=== PATIENT | male | born 1990 | race Caucasian/White ===

== ENCOUNTER → 2023-06-21 16:44 | Outpatient (CLI) | payer OTHER, MEDICAID, SELFPAY ==
[2023-06-21 17:26] LABS: Add Manual Diff / Slide Review NO; Basophils Absolute Auto 0 /uL (0-100); Basophils Percent Auto 0.5 % (0-2); Eosinophils Absolute Auto 400 /uL (0-450); Eosinophils Percent Auto 4.4 % (2-4); Hematocrit 42.2 % (41-53); Hemoglobin 14.4 g/dL (13.5-17.5); Lymphocytes Absolute Auto 2700 /uL (1100-4500); Lymphocytes Percent Auto 30.1 % (25-40); Mean Corpuscular HGB Conc 34.1 % (30-36); Mean Corpuscular Volume 82.3 fL (80-100); Monocytes Absolute Auto 800 /uL (0-900); Monocytes Percent Auto 8.8 % (3-14); Neutrophils Absolute Auto 5100 /uL (1500-7000); Neutrophils Percent Auto 56.2 % (50-75); Platelet Count 315 X10^3/uL (150-400); Red Blood Cell Count 5.13 X10^6/uL (4.5-5.9); Red Cell Distribution Width 14.1 % (11.6-14.8)
[2023-06-21 17:41] LABS: Hemoglobin A1C% w Est Avg Glu 5.2 % (4.0-6.0)
[2023-06-21 17:45] LABS: Alanine Aminotransferase 19 IU/L (<50); Albumin 4.2 g/dL (3.5-5.0); Albumin Globulin Ratio 1.2 (1.0-2.8); Alkaline Phosphatase 53 U/L (38-126); Aspartate Aminotransferase 24 IU/L (17-59); BUN Creatinine Ratio 13.3 (6-22); Bilirubin Total 0.2 mg/dL (0.2-1.3); Blood Urea Nitrogen 12 mg/dL (9-20); Calcium 9.8 mg/dL (8.4-10.2); Carbon Dioxide 27 mmol/L (22-32); Chloride 102 mmol/L (98-107); Cholesterol 191 mg/dL (140-199); Estimated Glomerular Filt Rate > 60 mL/min (>60); Globulin 3.4 g/dL (1.7-4.1); Glucose 117 mg/dL (70-100); HDL Cholesterol 29 mg/dL (40-60); HEMOLYSIS < 15 (0-50); Potassium 3.9 mmol/L (3.4-5.1); Sodium 140 mmol/L (137-145); Total Protein 7.6 g/dL (6.3-8.2); Triglycerides 424 mg/dL (35-150)
[2023-06-23 16:57] LABS: Hep C Virus Ab w/Reflex Quant NEGATIVE s/c (NEGATIVE)
== END ==
PROVIDERS: PCP Family Medicine; Referring Provider Family Medicine; Visit Provider Family Medicine
DX: Z00.00 Encounter for general adult medical examination without abnormal findings (principal); Z11.59 Encounter for screening for other viral diseases
CPT/HCPCS: 36415; 80053; 80061; 83036; 85025; 86803

== ENCOUNTER 2023-08-09 19:15 | Emergency (ER) | payer OTHER, MEDICAID, SELFPAY ==
[2023-08-09] VITALS (10 sets, daily range): BP systolic 104–133; BP diastolic 62–70; PULSE 57–76; RESP 9–18; TEMP 36.9; O2SAT 96–99; BMI 22.8
--- NOTE | 2023-08-09 19:28 | DI.RAD.S_ITS ---
PROCEDURE: XR CHEST 1V INDICATIONS: chest pain TECHNIQUE: One view of the chest was acquired. COMPARISON: [facility], CR, XR CHEST 1VW, 05/28/2016, 11:55. FINDINGS: Surgical changes and devices: None. Lungs and pleura: Lungs are clear. No pleural effusions or pneumothorax. Mediastinum: Mediastinal contours appear normal. Heart size is normal. Bones and chest wall: No suspicious bony lesions. Overlying soft tissues appear unremarkable. IMPRESSION: No acute cardiopulmonary abnormality. Dictated by: Wesley Vasquez M.D. on 08/09/2023 at 19:58 Approved by: Wesley Vasquez M.D. on 08/09/2023 at 19:58
[2023-08-09 20:12] LABS: INR 1.1 (0.9-1.3); Prothrombin Time 12.4 SECONDS (10.1-12.7)
[2023-08-09 20:13] LABS: Add Manual Diff / Slide Review NO; Basophils Absolute Auto 100 /uL (0-100); Basophils Percent Auto 0.9 % (0-2); Eosinophils Absolute Auto 300 /uL (0-450); Eosinophils Percent Auto 5.5 % (2-4); Hemoglobin 13.4 g/dL (13.5-17.5); Lymphocytes Absolute Auto 2300 /uL (1100-4500); Lymphocytes Percent Auto 36.8 % (25-40); Mean Corpuscular HGB Conc 34.5 % (30-36); Mean Corpuscular Hemoglobin 27.9 PG (26-34); Mean Corpuscular Volume 80.8 fL (80-100); Monocytes Absolute Auto 500 /uL (0-900); Monocytes Percent Auto 8.2 % (3-14); Neutrophils Absolute Auto 3100 /uL (1500-7000); Neutrophils Percent Auto 48.6 % (50-75); Platelet Count 269 X10^3/uL (150-400); Red Blood Cell Count 4.82 X10^6/uL (4.5-5.9); Red Cell Distribution Width 13.6 % (11.6-14.8); White Blood Cell Count 6.3 X10^3/uL (4.5-11.0)
[2023-08-09 20:24] LABS: Alanine Aminotransferase 21 IU/L (<50); Albumin 4.1 g/dL (3.5-5.0); Albumin Globulin Ratio 1.4 (1.0-2.8); Alkaline Phosphatase 50 U/L (38-126); Aspartate Aminotransferase 23 IU/L (17-59); BUN Creatinine Ratio 16.5 (6-22); Bilirubin Total 0.4 mg/dL (0.2-1.3); Blood Urea Nitrogen 13 mg/dL (9-20); Calcium 9.5 mg/dL (8.4-10.2); Carbon Dioxide 26 mmol/L (22-32); Chloride 104 mmol/L (98-107); Creatine Kinase 180 U/L (55-170); Estimated Glomerular Filt Rate > 60 mL/min (>60); Glucose 98 mg/dL (70-100); HEMOLYSIS 28 (0-50); Lipase 57 U/L (23-300); Potassium 3.9 mmol/L (3.4-5.1); Sodium 137 mmol/L (137-145); Total Protein 7.1 g/dL (6.3-8.2)
[2023-08-09 20:35] LABS: Troponin I < 0.012 ng/mL (0.01-0.034)
--- NOTE | 2023-08-09 22:00 | ED_ITS ---
HPI - Chest Pain General Chief Complaint: Chest Pain Stated Complaint: chest pain, difficulty breathing, light headed Time Seen by Provider: 08/09/23 22:00 Source: patient Mode of arrival: Ambulatory Limitations: no limitations History of Present Illness HPI narrative: Patient 33-year-old male history of tobacco abuse presenting today with sudden onset of chest pain or shortness of breath. Started while he was work was sharp stabbing now dull ache. He has been here for couple hours sleeping. He still reports that he is trouble catching his breath. No fever or chills he is not had any upper respiratory like symptoms. No abdominal pain nausea or vomiting. He has no lower extremity edema. Related Data Previous Rx's Medication Instructions Recorded clotrimazole 1 % topical cream 1 applic topical BID 4 weeks #45 06/21/23 grams varenicline 1 mg tablet 1 mg PO BID #56 tabs 06/21/23 ketoconazole 2 % shampoo 1 applic topical 3XW #120 mL 07/12/23 metronidazole 500 mg tablet 2,000 mg (4 x 500 mg) PO ONCE #4 07/12/23 tabs sertraline 50 mg tablet 50 mg PO DAILY #30 tabs 08/08/23 prednisone 20 mg tablet 40 mg (2 x 20 mg) PO DAILY #10 tabs 08/09/23 Allergies Allergy/AdvReac Type Severity Reaction Status Date / Time No Known Drug Allergies Allergy Unverified 07/12/23 11:08 Patient History Medical History Asthma Family History Father Graves disease Mother Diabetes mellitus Social History marital status: number of children: 2 household members: spouse and children lives independently: Yes housing: apartment occupational status: employed Previous occupational history: Works in [employer] at [employer] sexual history: Monogamous with of 12 years Smoking Status: Current every day smoker Tobacco: How many years used: 14 quit status: has quit before alcohol intake: former substance use type: does not use Smoking Status: Current every day smoker Substance Use Type: does not use Exam Initial Vital Signs Initial Vital Signs: Vital Signs Temperature 98.4 F 08/09/23 19:23 Pulse Rate 76 08/09/23 19:23 Respiratory Rate 18 08/09/23 19:23 Blood Pressure 133/65 08/09/23 19:23 Pulse Oximetry 98 08/09/23 19:23 Oxygen Delivery Method Room Air 08/09/23 19:23 GENERAL: Alert sleeping 33-year-old male easily arousable and in no acute distress. HEENT: Head atraumatic,EOMI, pupils reactive, face symmetric, moist mucous membranes CARDIOVASCULAR: Regular rate and rhythm without murmurs, rubs or gallops. RESPIRATORY: Slightly decreased breath sounds without wheezing no respiratory distress ABDOMEN: Soft, nontender. Normoactive bowel sounds all 4 quadrants. No guarding or rebound. EXTREMITIES: Normal range of motion, no clubbing or edema. Neurovascularly intact NEUROLOGICAL: Alert and oriented x4.Normal gait and speech. SKIN: Warm, dry, no laceration, no petechiae, no rashes or lesions. Course Orders Ordered: ED Orders 08/09/23 19:28 XR chest 1V Stat EKG-12 Lead Stat 08/09/23 19:57 Complete Blood Count AUTO DIFF Stat Comprehensive Metabolic Panel Stat Lipase Stat Magnesium Stat Prothrombin Time INR Stat Troponin & CK Cardiac Panel Stat Discontinued Medications Albuterol (Albuterol Hfa Prepack) 1 box MISC SEEINSTR ONE Stop: 08/09/23 22:07 Last Admin: 08/09/23 22:38 Dose: 1 box Documented By: CYNTHIA Albuterol/Ipratropium (Albuterol/Ipratropium 3 Ml Ampul) 3 ml INH NOW ONE Stop: 08/09/23 22:07 Last Admin: 08/09/23 22:37 Dose: 3 ml Documented By: CYNTHIA Aspirin (Aspirin 81 Mg Chew Tab) 324 mg PO NOW ONE Stop: 08/09/23 19:29 Last Admin: 08/09/23 22:07 Dose: Not Given Documented By: CRUZITO Vital Signs Vital signs: Vital Signs - 8 hr 08/09/23 19:23 08/09/23 19:37 08/09/23 20:00 Temperature 98.4 F Pulse Rate 76 71 69 Respiratory Rate 18 9 L 12 Blood Pressure 133/65 113/66 Pulse Oximetry 98 98 99 Oxygen Delivery Method Room Air Room Air 08/09/23 20:30 08/09/23 21:00 08/09/23 21:30 Temperature Pulse Rate 69 61 58 L Respiratory Rate 12 14 14 Blood Pressure 122/70 107/62 104/66 Pulse Oximetry 98 96 97 Oxygen Delivery Method Room Air Room Air Room Air 08/09/23 22:00 08/09/23 22:30 08/09/23 22:38 Temperature Pulse Rate 57 L 62 Respiratory Rate 14 17 Blood Pressure 110/67 104/67 Pulse Oximetry 98 99 98 Oxygen Delivery Method Room Air Room Air 08/09/23 23:00 Temperature Pulse Rate 73 Respiratory Rate 17 Blood Pressure 114/62 Pulse Oximetry 98 Oxygen Delivery Method Room Air MDM - Chest Pain Lab Data 08/09/23 19:57 08/09/23 19:57 Labs: Lab Results 08/09/23 Range/Units 19:57 WBC 6.3 (4.5-11.0) X10^3/uL RBC 4.82 (4.5-5.9) X10^6/uL Hgb 13.4 L (13.5-17.5) g/dL Hct 39.0 L (41-53) % MCV 80.8 (80-100) fL MCH 27.9 (26-34) PG MCHC 34.5 (30-36) % RDW 13.6 (11.6-14.8) % Plt Count 269 (150-400) X10^3/uL Neut % (Auto) 48.6 L (50-75) % Lymph % (Auto) 36.8 (25-40) % [place] % (Auto) 8.2 (3-14) % Eos % (Auto) 5.5 H (2-4) % Baso % (Auto) 0.9 (0-2) % Neut # (Auto) 3100 (0985-9585) /uL Lymph # (Auto) 2300 (7082-6586) /uL [place] # (Auto) 500 (0-900) /uL Eos # (Auto) 300 (0-450) /uL Baso # (Auto) 100 (0-100) /uL PT 12.4 (10.1-12.7) SECONDS INR 1.1 (0.9-1.3) Sodium 137 (137-145) mmol/L Potassium 3.9 (3.4-5.1) mmol/L Chloride 104 (98-107) mmol/L Carbon Dioxide 26 (22-32) mmol/L BUN 13 (9-20) mg/dL Creatinine 0.79 (0.66-1.25) mg/dL Estimated GFR > 60 (>60) mL/min BUN/Creatinine Ratio 16.5 (6-22) Glucose 98 (70-100) mg/dL Calcium 9.5 (8.4-10.2) mg/dL Magnesium 2.0 (1.6-2.3) mg/dL Total Bilirubin 0.4 (0.2-1.3) mg/dL AST 23 (17-59) IU/L ALT 21 (<50) IU/L Alkaline Phosphatase 50 (38-126) U/L Total Creatine Kinase 180 H (55-170) U/L Troponin I < 0.012 (0.01-0.034) ng/mL Total Protein 7.1 (6.3-8.2) g/dL Albumin 4.1 (3.5-5.0) g/dL Globulin 3.0 (1.7-4.1) g/dL Albumin/Globulin Ratio 1.4 (1.0-2.8) Lipase 57 (23-300) U/L Imaging Data Chest x-ray: Radiologist's Impression: PROCEDURE: XR CHEST 1V INDICATIONS: chest pain TECHNIQUE: One view of the chest was acquired. COMPARISON: [facility], , XR CHEST 1VW, 05/28/2016, 11:55. FINDINGS: Surgical changes and devices: None. Lungs and pleura: Lungs are clear. No pleural effusions or pneumothorax. Mediastinum: Mediastinal contours appear normal. Heart size is normal. Bones and chest wall: No suspicious bony lesions. Overlying soft tissues appear unremarkable. IMPRESSION: No acute cardiopulmonary abnormality. Dictated by: Wesley Vasquez M.D. on 08/09/2023 at 19:58 ECG Data Interpretation: Sinus rhythm rate 69 VA interval 136 QRS [address] changes MDM Narrative Medical decision making narrative: Patient 33-year-old male history of tobacco abuse presenting today with chest pain and shortness of breath. Blood work is overall reassuring x-ray is clear no infectious symptoms. Negative troponin no leukocytosis. Other labs are unremarkable. I suspect his chest pain and breathing may be reactive airway. He is given a DuoNeb an inhaler and spacer teaching. Will put him on steroid burst. No need for antibiotics Discharge Plan Departure Patient Disposition: Home Clinical Impression: Asthma Instructions: Chronic Obstructive Pulmonary Disease, Asthma -- Adult Activity Restrictions/Additional Instructions: *You have been diagnosed with COPD/asthma exacerbation *What to do: At this time I think your issues today were related to breathing. Albuterol should help with that. *Continue to take medications as directed Prednisone 40 mg once a day for 5 days Albuterol inhaler 1-2 puffs with spacer every 4 hours if needed for chest pain or shortness of breath *Follow up with your primary care provider in 2-3 days or call [phone] *Return to ER if you should have increasing chest pain shortness of breath fever or chills or any new, worsening or concerning symptoms Prescriptions: New prednisone 20 mg tablet 40 mg PO DAILY Qty: 10 0RF No Action clotrimazole 1 % cream 1 applic topical BID 28 Days Qty: 45 1RF varenicline 1 mg tablet 1 mg PO BID Qty: 56 3RF Rx Instructions: Take 0.5mg daily for three days, then 0.5mg daily for four days, then 1mg BID for remainder of 12 week course. metronidazole 500 mg tablet 2,000 mg PO ONCE Qty: 4 0RF ketoconazole 2 % shampoo 1 applic topical 3XW Qty: 120 2RF sertraline 50 mg tablet 50 mg PO DAILY Qty: 30 0RF Referrals: Herman Gomez MD [Primary Care Provider] - Stand Alone Forms: Patient Portal/API
[2023-08-09] MEDS: ALBUTEROL/IPRATROPIUM 3 ML AMPUL INH (22:37)
[2023-08-09] MEDS: ALBUTEROL HFA PREPACK 1 BOX MISC (22:38)
== END 2023-08-09 23:11 | disposition home or self-care (01) ==
PROVIDERS: Emergency Medicine; Emergency Provider Emergency Medicine; PCP Family Medicine
DX: J45.909 Unspecified asthma, uncomplicated (principal); R07.9 Chest pain, unspecified
CPT/HCPCS: 36415; 71045; 80053; 82550; 83690; 83735; 84484; 85025; 85610; 93005; 94640; 99284

== ENCOUNTER → 2024-04-11 14:27 | Outpatient (CLI) | payer SELFPAY ==
[2024-04-11 15:18] LABS: Urine Drug Scr, Empl Non-NIDA See Separate Report
== END ==
PROVIDERS: PCP Family Medicine
DX: Z02.1 Encounter for pre-employment examination (principal)
CPT/HCPCS: 81099

== ENCOUNTER 2024-12-23 03:12 | Emergency (ER) | payer OTHER, SELFPAY ==
[2024-12-23 03:30] VITALS: BP 143/78; PULSE 70; RESP 17; TEMP 36.8; O2SAT 100; BMI 23.6
--- NOTE | 2024-12-23 03:40 | ED.DENTAL ---
HPI - Dental/Oral General Chief complaint: Dental/Oral Stated complaint: Mouth pain x 3 days Time Seen by Provider: 12/23/24 03:40 Source: patient, RN notes reviewed and old records reviewed Mode of arrival: Ambulatory Limitations: no limitations History of Present Illness HPI Narrative: 34-year-old male history of tobacco use presents with a complaint of dental pain particularly right upper but also little bit the right lower. Notes he has a multiple dental caries and issues with his teeth. He has had issues on and off in the past. He states he was has a little bit of swelling he feels like he has had some redness. Has not had any drainage purulent discharge but feels like the tissue soft and swollen. Patient states he has had some subjective fevers. He has had intermittent nausea and occasional vomiting. Denies chest pain, denies shortness of breath, denies any swelling in his tongue, airway, no changes to voice. Patient states has a only daily medication is sertraline. Denies any major surgeries. States he does use tobacco daily, does not use alcohol regularly denies any recreational or IV drugs. Related Data Home Medications Medication Instructions Recorded Confirmed doxycycline hyclate 100 mg capsule 100 mg PO BID 04/25/24 04/25/24 triamcinolone acetonide 0.1 % 1 applic topical 04/25/24 04/25/24 topical cream Previous Rx's Medication Instructions Recorded varenicline tartrate 1 mg tablet 1 mg PO BID #56 tabs 06/21/23 hydroxyzine HCl 25 mg tablet 25 mg PO BID PRN sleep #60 tabs 01/10/24 sertraline 100 mg tablet 150 mg (1.5 x 100 mg) PO DAILY 04/25/24 #135 tabs budesonide-formoterol HFA 80 2 puff inhalation BID #10.2 grams 11/02/24 mcg-4.5 mcg/actuation aerosol inhaler penicillin V potassium 500 mg 500 mg PO QID 10 days #40 tabs 12/23/24 tablet Allergies Allergy/AdvReac Type Severity Reaction Status Date / Time No Known Drug Allergies Allergy Verified 04/25/24 15:38 Review of Systems Review of Systems ROS Unobtainable: All systems reviewed & are unremarkable except as noted in HPI and below Patient History Medical History Asthma Family History Father Graves disease Mother Diabetes mellitus Social History marital status: number of children: 2 household members: spouse and children lives independently: Yes housing: apartment occupational status: employed Previous occupational history: Works in [employer] at [employer] sexual history: Monogamous with of 12 years Smoking Status: Current every day smoker Tobacco: How many years used: 14 quit status: has quit before alcohol intake: former substance use type: does not use Smoking Status: Current every day smoker tobacco type: cigarettes Exam Narrative Exam Narrative: GEN: well nourished, well appearing male, alert and oriented x 3, patient appears to be in mild distress. HEENT: Atraumatic, pupils are equal round reactive to light, extraocular movements are intact, nares are clear, TMs are clear with no fluid, there is no conjunctival pallor. Throat is clear without any exudates, erythema, tonsillar enlargement or uvular deviation, patient has poor dentition and cavities throughout. Does have some mild swelling at the right upper jaw no fluctuance or fluid collection appreciated. No purulent drainage. No obvious facial erythema or swelling. HEART: Regular rate and rhythm without murmur, clicks, rubs. No carotid bruits, pulses are equal in upper and lower extremities LUNGS:Lungs clear to auscultation, no wheezes, rales, crackles, chest moves symmetrically ABD:bowel sounds normal, soft, non-tender, no guarding, rebound, rigidity, no masses noted, no hepatosplenomegaly MSCL: Full range of motion, normal gait NEURO:CN 2-12 intact, sensation normal Initial Vital Signs Initial Vital Signs: Vital Signs Temperature 98.3 F 12/23/24 03:30 Pulse Rate 70 12/23/24 03:30 Respiratory Rate 17 12/23/24 03:30 Blood Pressure 143/78 H 12/23/24 03:30 Pulse Oximetry 100 12/23/24 03:30 Oxygen Delivery Method Room Air 12/23/24 03:30 Course Orders Ordered: Discontinued Medications Ondansetron HCl (Ondansetron 4 Mg Odt Prepack) 1 bottle MISC DIRECTED ONE Stop: 12/23/24 04:18 Last Admin: 12/23/24 04:25 Dose: 1 bottle Documented By: BLADIMIR Penicillin V Potassium (Penicillin Vk 250 Mg Tablet) 500 mg PO NOW ONE Stop: 12/23/24 04:12 Last Admin: 12/23/24 04:25 Dose: 500 mg Documented By: BLADIMIR Vital Signs Vital signs: Vital Signs - 8 hr 12/23/24 03:30 Temperature 98.3 F Pulse Rate 70 Respiratory Rate 17 Blood Pressure 143/78 H Pulse Oximetry 100 Oxygen Delivery Method Room Air MDM - Dental/Oral MDM Narrative Medical decision making narrative: 34-year-old male with a multiple dental caries suspect he is felt in a little bit of a dental infection we will give a course of pen VK recommend follow up with dental. Discussed return precautions all questions answered. Discharge Plan Departure Patient Disposition: Home Clinical Impression: Dental caries, Dental infection Instructions: Tooth Abscess Activity Restrictions/Additional Instructions: I would recommend follow up with dental clinic, you can try [facility], they have offices in [place] and [place]. The [place] number is [phone]. Take oral antibiotics until completed prescription was [facility] to [facility] in [place]. You can take acetaminophen up to a 1000 mg and/or ibuprofen up to 600 mg every 6 hours as needed. You can take Zofran 1 tablet every 6 hours as needed for nausea. Please return for persistent fevers rapidly worsening swelling of your mouth, lips, tongue or airway, increasing redness or swelling of your face, persistent vomiting, lightheadedness or passing out or other new or concerning changes Prescriptions: New penicillin V potassium 500 mg tablet 500 mg PO QID 10 Days Qty: 40 0RF No Action doxycycline hyclate 100 mg capsule 100 mg PO BID triamcinolone acetonide 0.1 % cream 1 applic topical sertraline 100 mg tablet 150 mg PO DAILY Qty: 135 3RF varenicline tartrate 1 mg tablet 1 mg PO BID Qty: 56 3RF Rx Instructions: Take 0.5mg daily for three days, then 0.5mg daily for four days, then 1mg BID for remainder of 12 week course. hydroxyzine HCl 25 mg tablet 25 mg PO BID PRN (Reason: sleep) Qty: 60 2RF budesonide-formoterol 80-4.5 mcg/actuation HFA aerosol inhaler 2 puff inhalation BID Qty: 10.2 0RF Referrals: Herman Gomez MD [Primary Care Provider] - Stand Alone Forms: Patient Portal/API/Survey
[2024-12-23] MEDS: ONDANSETRON 4 MG ODT PREPACK 1 BOTTLE MISC (04:25)
[2024-12-23] MEDS: PENICILLIN VK 250 MG TABLET 500 MG PO (04:25)
== END 2024-12-23 04:29 | disposition home or self-care (01) ==
PROVIDERS: Emergency Provider Emergency Medicine; PCP Family Medicine
DX: K02.9 Dental caries, unspecified (principal); K04.7 Periapical abscess without sinus
CPT/HCPCS: 99283

== ENCOUNTER 2024-12-24 03:29 | Emergency (ER) | payer OTHER, SELFPAY ==
[2024-12-24 04:02] VITALS: BP 149/73; PULSE 79; RESP 18; TEMP 36.6; O2SAT 100; BMI 23.6
--- NOTE | 2024-12-24 04:49 | ED_ITS ---
HPI - Dental/Oral General Chief complaint: Dental/Oral Stated complaint: Tooth pain not any better; seen last night in ED Time Seen by Provider: 12/24/24 04:31 Source: patient, RN notes reviewed and old records reviewed Mode of arrival: Ambulatory Limitations: no limitations History of Present Illness HPI Narrative: 34-year-old male history of tobacco use presents with a complaint of dental pain without any improvement. Was seen last night here by myself had dental caries appear to be infected with started on penicillin VK has been taking ibuprofen for pain but is still quite uncomfortable. No fevers no drainage from the area. Patient feels like it is maybe slightly more swollen. Notes swelling in his airway. No rash or skin changes no erythema. Patient has had 3 doses of the penicillin VK. Related Data Home Medications Medication Instructions Recorded Confirmed doxycycline hyclate 100 mg capsule 100 mg PO BID 04/25/24 04/25/24 triamcinolone acetonide 0.1 % 1 applic topical 04/25/24 04/25/24 topical cream Previous Rx's Medication Instructions Recorded varenicline tartrate 1 mg tablet 1 mg PO BID #56 tabs 06/21/23 hydroxyzine HCl 25 mg tablet 25 mg PO BID PRN sleep #60 tabs 01/10/24 sertraline 100 mg tablet 150 mg (1.5 x 100 mg) PO DAILY 04/25/24 #135 tabs budesonide-formoterol HFA 80 2 puff inhalation BID #10.2 grams 11/02/24 mcg-4.5 mcg/actuation aerosol inhaler penicillin V potassium 500 mg 500 mg PO QID 10 days #40 tabs 12/23/24 tablet Allergies Allergy/AdvReac Type Severity Reaction Status Date / Time No Known Drug Allergies Allergy Verified 04/25/24 15:38 Review of Systems Review of Systems ROS Unobtainable: All systems reviewed & are unremarkable except as noted in HPI and below Patient History Medical History Asthma Family History Father Graves disease Mother Diabetes mellitus Social History marital status: number of children: 2 household members: spouse and children lives independently: Yes housing: apartment occupational status: employed Previous occupational history: Works in sanitation at [employer] sexual history: Monogamous with of 12 years Smoking Status: Current every day smoker Tobacco: How many years used: 14 quit status: has quit before alcohol intake: former substance use type: does not use Smoking Status: Current every day smoker tobacco type: cigarettes Exam Narrative Exam Narrative: GEN: well nourished, well appearing male, alert and oriented x 3, patient appears to be in mild distress. HEENT: Atraumatic, pupils are equal round reactive to light, extraocular movements are intact, nares are clear, there is no conjunctival pallor. Throat is clear without any exudates, erythema, tonsillar enlargement or uvular deviation, patient has poor dentition and caries throughout his mouth. No facial erythema or swelling, no swelling intraorally. HEART: Regular rate and rhythm without murmur, clicks, rubs. No carotid bruits, pulses are equal in upper and lower extremities LUNGS:Lungs clear to auscultation, no wheezes, rales, crackles, chest moves symmetrically ABD:bowel sounds normal, soft, non-tender, no guarding, rebound, rigidity, no masses noted, no hepatosplenomegaly MSCL: Non-tender, no muscle atrophy, muscles strength 5/5 upper and lower extremities, full range of motion NEURO:CN 2-12 intact, sensation normal. Initial Vital Signs Initial Vital Signs: Vital Signs Temperature 97.9 F 12/24/24 04:02 Pulse Rate 79 12/24/24 04:02 Respiratory Rate 18 12/24/24 04:02 Blood Pressure 149/73 H 12/24/24 04:02 Pulse Oximetry 100 12/24/24 04:02 Oxygen Delivery Method Room Air 12/24/24 04:02 Course Orders Ordered: Discontinued Medications Tramadol HCl (Tramadol 50 Mg Prepack) 1 bottle MISC DIRECTED ONE Stop: 12/24/24 05:09 Last Admin: 12/24/24 05:19 Dose: 1 bottle Documented By: BLADIMIR Vital Signs Vital signs: Vital Signs - 8 hr 12/24/24 04:02 Temperature 97.9 F Pulse Rate 79 Respiratory Rate 18 Blood Pressure 149/73 H Pulse Oximetry 100 Oxygen Delivery Method Room Air MDM - Dental/Oral MDM Narrative Medical decision making narrative: Discussed with patient we will have him continue penicillin VK does not sound case worsening but still having quite a bit of pain we will give short course of narcotic pain medication and prepack forearm. He also requested a work note so that he can attend the dentist today. Discharge Plan Departure Patient Disposition: Home Clinical Impression: Dental caries, Dental infection Activity Restrictions/Additional Instructions: Follow up with the dental clinic. Continue oral antibiotics as prescribed. Max doses for acetaminophen a 1000 mg every 6 hours and 800 mg every 8 hours of ibuprofen. You can take the narcotic pain medication in combination with acetaminophen and ibuprofen. Take 1 tablet tramadol every 6 hours as needed for pain. This medication can make you sleepy do not drive, perform hazardous activities or make any major decisions while taking it. This medication will make you constipated please take a stool softener once to twice daily until stools are soft and regular. Please return for fevers, increasing swelling of your mouth, lips, tongue or airway, increasing redness or swelling of your face, persistent vomiting lightheadedness or passing out or other new or concerning changes. Prescriptions: No Action doxycycline hyclate 100 mg capsule 100 mg PO BID triamcinolone acetonide 0.1 % cream 1 applic topical sertraline 100 mg tablet 150 mg PO DAILY Qty: 135 3RF varenicline tartrate 1 mg tablet 1 mg PO BID Qty: 56 3RF Rx Instructions: Take 0.5mg daily for three days, then 0.5mg daily for four days, then 1mg BID for remainder of 12 week course. hydroxyzine HCl 25 mg tablet 25 mg PO BID PRN (Reason: sleep) Qty: 60 2RF budesonide-formoterol 80-4.5 mcg/actuation HFA aerosol inhaler 2 puff inhalation BID Qty: 10.2 0RF penicillin V potassium 500 mg tablet 500 mg PO QID 10 Days Qty: 40 0RF Referrals: Herman Gomez MD [Primary Care Provider] - Stand Alone Forms: Patient Portal/API/Survey, Work Release Note
[2024-12-24] MEDS: TRAMADOL 50 MG PREPACK 1 BOTTLE MISC (05:19)
== END 2024-12-24 05:20 | disposition home or self-care (01) ==
PROVIDERS: Emergency Provider Emergency Medicine; PCP Family Medicine
DX: K02.9 Dental caries, unspecified (principal); K04.7 Periapical abscess without sinus
CPT/HCPCS: 99281

== ENCOUNTER → 2024-12-25 15:17 | Outpatient (CLI) | payer OTHER, SELFPAY | PROVIDERS: PCP Family Medicine; Visit Provider Physician Assistant Surgical | DX: J02.9 Acute pharyngitis, unspecified (principal) | CPT/HCPCS: 87070 ==

== ENCOUNTER 2025-04-12 20:46 | Emergency (ER) | payer OTHER, SELFPAY ==
[2025-04-12 21:01] VITALS: BP 140/72; PULSE 91; RESP 18; TEMP 37.5; O2SAT 96; BMI 25.1
--- NOTE | 2025-04-12 21:52 | DI.RAD.S_ITS ---
PROCEDURE: XR CHEST 2V INDICATIONS: cough, congestion, fever, bodyaches TECHNIQUE: 2 views of the chest were acquired. COMPARISON: [facility], CR, XR CHEST 1V, 08/09/2023, 19:41. FINDINGS: Surgical changes and devices: None. Lungs and pleura: Lungs are clear. No pleural effusions or pneumothorax. Mediastinum: Mediastinal contours are normal. Heart size is normal. Bones and chest wall: No suspicious bony abnormalities. Soft tissues appear unremarkable. IMPRESSION: No acute pulmonary process. Dictated by: Kaylyn Collins M.D. on 04/12/2025 at 22:47 Approved by: Kayyln Collins M.D. on 04/12/2025 at 22:47
[2025-04-12 22:36] LABS: Influenza A - CEPHEID Flu A NEGATIVE (NEGATIVE); Influenza B - CEPHEID Flu B NEGATIVE (NEGATIVE)
[2025-04-12 22:45] LABS: COVID-19 CEPHEID 4-PLEX PCR POSITIVE (Negative)
--- NOTE | 2025-04-13 00:17 | ED_ITS ---
HPI - URI/Sore Throat General Chief Complaint: Upper Respiratory Symptoms Stated Complaint: Nausea/dizzy , cold,body aches Time Seen by Provider: 04/12/25 21:06 Source: patient Mode of arrival: Family Vehicle History of Present Illness HPI Narrative: 35y M presents smoker with fever, chills, bodyache, cough, sorethroat, started today. 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 Patient denies chest pain shortness breath dyspnea on exertion, nausea, vomiting, diarrhea, or rash. He is tolerating p.o. intake has not taken anything prior to arrival here. Other than what is stated 14 system is negative. Related Data Home Medications ?Medication ?Instructions ?Recorded ?Confirmed doxycycline hyclate 100 mg capsule 100 mg PO BID 04/2504/25/24 triamcinolone acetonide 0.1 % 1 applic topical 4 04/25/24 topical cream Previous Rx's ?Medication ?Instructions ?Recorded varenicline tartrate 1 mg tablet 1 mg PO BID #56 tabs 06/21/23 hydroxyzine HCl 25 mg tablet 25 mg PO BID PRN sleep #6 0 tabs 01/10/24 sertraline 100 mg tablet 150 mg (1.5 x 100 mg) PO JACKIE LY 04/25/24 #135 tabs budesonide-formoterol HFA 80 2 puff inhalation BID #10 .2 grams 11/02/24 mcg-4.5 mcg/actuation aerosol inhaler dexamethasone 6 mg tablet 6 mg PO DAILY #7 tabs nirmatrelvir 300 mg (150 mg See Rx Instructions PO .CO MPLEX 04/13/25 x2)-ritonavir 100 mg tablet,dose #30 ea pack (Paxlovid) Allergies Allergy/AdvReac Type Severity Reaction Status Date / Time No Known Drug Allergies Allergy Verified 04/12/25 21:44 Review of Systems Review of Systems ROS Unobtainable: All systems reviewed & are unremarkable except as noted in HPI and below Patient History Medical History Asthma Family History Father Graves disease Mother Diabetes mellitus Social History marital status: number of children: 2 household members: spouse and children lives independently: Yes housing: apartment occupational status: employed Previous occupational history: Works in [employer] at [employer] sexual history: Monogamous with of 12 years Tobacco: How many years used: 14 quit status: has quit before alcohol intake: former substance use type: does not use tobacco type: cigarettes Exam Narrative Exam Narrative: GENERAL: [35] year old patient appears stated age. Well-developed patient, in mild distress. HEAD: Atraumatic. Normocephalic. EYES: Pupils equal round and reactive. Extraocular motions intact. No scleral icterus. No injection or drainage. ENT: Nose without bleeding, purulent drainage. Throat without erythema, tonsillar hypertrophy or exudate. Airway patent. NECK: Trachea midline. Non tender CARDIOVASCULAR: Regular rate and rhythm without murmurs, gallops, or rubs. RESPIRATORY: Clear to auscultation. Breath sounds equal bilaterally. No wheezes, rales, or rhonchi. GASTROINTESTINAL: Abdomen soft, non-tender, nondistended. EXTREMITIES: No edema or joint tenderness. BACK: Nontender without deformity or crepitance. No flank tenderness. NEURO: AOx3. SKIN: No rash or erythema of visible areas Initial Vital Signs Initial Vital Signs: Vital Signs Temperature 99.5 F 04/12/25 21:01 Pulse Rate 91 H 04/12/25 21:01 Respiratory Rate 18 04/12/25 21:01 Blood Pressure 140/72 04/12/25 21:01 Pulse Oximetry 96 04/12/25 21:01 Oxygen Delivery Method Room Air 04/12/25 21:01 Course Orders Ordered: ED Orders 04/12/25 21:51 Covid-19 + FLU A/B + RSV - PCR Stat 04/12/25 21:52 XR chest 2V Stat Vital Signs Vital signs: Vital Signs - 8 hr 04/12/25 21:01 Temperature 99.5 F Pulse Rate 91 H Respiratory Rate 18 Blood Pressure 140/72 Pulse Oximetry 96 Oxygen Delivery Method Room Air MDM - URI/Sore Throat Lab Data Labs: Lab Results 04/12/25 Range/Units 21:51 SARS-CoV-2 (PCR) Positive H (Negative) Influenza A (RT-PCR) Flu a negative (NEGATIVE) Influenza B (RT-PCR) Flu b negative (NEGATIVE) RSV (PCR) Negative (Negative) MDM Narrative Medical decision making narrative: Vital signs, nurse triage note, medication list, previous ER visits, and all imaging study reviewed. Patient given Tylenol ibuprofen and prednisone here. Patient will be discharged on Paxlovid, and Decadron. DC home keep hydrated. Differential diagnosis COVID flu RSV. Discharge Plan Departure Patient Disposition: Home Clinical Impression: COVID-19 Instructions: DI for COVID-19 (Suspected or Confirmed ) Activity Restrictions/Additional Instructions: Return with new or worsening symptoms. Take medicines as directed. Take Tylenol and or ibuprofen for fever or pain control. Keep hydrated. Prescriptions: New Paxlovid 300 mg (150 mg x 2)-100 mg tablets,dose pack See Rx Instructions .ROUTE .COMPLEX Qty: 30 0RF Rx Instructions: take TWO 150 mg tablets of nirmatrelvir with ONE 100 mg tablet of ritonavir twice daily for 5 days dexamethasone 6 mg tablet 6 mg PO DAILY Qty: 7 0RF No Action doxycycline hyclate 100 mg capsule 100 mg PO BID triamcinolone acetonide 0.1 % cream 1 applic topical sertraline 100 mg tablet 150 mg PO DAILY Qty: 135 3RF varenicline tartrate 1 mg tablet 1 mg PO BID Qty: 56 3RF Rx Instructions: Take 0.5mg daily for three days, then 0.5mg daily for four days, then 1mg BID for remainder of 12 week course. hydroxyzine HCl 25 mg tablet 25 mg PO BID PRN (Reason: sleep) Qty: 60 2RF budesonide-formoterol 80-4.5 mcg/actuation HFA aerosol inhaler 2 puff inhalation BID Qty: 10.2 0RF Referrals: Herman Gomez MD [Primary Care Provider, [facility]] Stand Alone Forms: Patient Portal/API
[2025-04-13] MEDS: IBUPROFEN 400 MG TABLET 800 MG PO (00:29)
[2025-04-13] MEDS: ACETAMINOPHEN 325 MG TABLET 975 MG PO (00:29)
[2025-04-13 00:30] VITALS: BP 132/64; PULSE 92; RESP 18; TEMP 37.5; O2SAT 97
== END 2025-04-13 00:38 | disposition home or self-care (01) ==
PROVIDERS: Emergency Provider Family Medicine; PCP Family Medicine
DX: U07.1 COVID-19 (principal)
CPT/HCPCS: 71046; 87637; 99283